=== PATIENT | female | born 1960 | race Caucasian/White ===

== ENCOUNTER 2016-12-05 18:52 | Inpatient (IN) | payer SELFPAY ==
[~2016-12-05] VITALS: Ht 162.6 cm; Wt 93.1 kg
--- NOTE | 2016-12-05 21:19 | DIAGNOSTIC IMAGING REPORT ---
PROCEDURE: CT ABD/PELVIS WITH CONTRAST INDICATION: Abdominal pain. Constipation. Elevated white blood count (18,900). History of diverticulosis. TECHNIQUE: 100 ml of Isovue 300 were injected intravenously and axial images were obtained of the entire abdomen and pelvis with sagittal and coronal reformations. COMPARISON: None. FINDINGS: ABDOMEN: Gallbladder, liver (10 mm left lobe cyst), spleen, pancreas, kidneys, and aorta are normal. Bowel pattern is normal, including appendix. PELVIS: Marked inflammatory changes of the mid sigmoid colon superimposed on moderate diverticulosis. No evidence of fluid collection or abscess. Uterus and adnexal structures are normal. No evidence of free fluid. IMPRESSION: 1. Marked inflammatory changes of the sigmoid colon superimposed on diverticulosis. Findings are compatible with acute diverticulitis. 2. No evidence of fluid collection or abscess. 3. Otherwise negative CT abdomen and pelvis. 4. Findings discussed with Dr. Guzman Cade. All CT scans at this facility use dose modulation, iterative reconstruction, and/or weight-based dosing when appropriate to reduce radiation dose to as low as reasonably achievable.
--- NOTE | 2016-12-05 22:06 | ED CLINICAL REPORT ---
Clinical Report - Physicians/Mid Levels [facility] [address] [place] [address] 12/05/2016 18:54 Patient: ANGELA BROWN Time Seen: 19:42 Dec 05 2016. Historian- patient. HISTORY OF PRESENT ILLNESS Chief Complaint: ABDOMINAL PAIN and fever. At its maximum, severity described as severe. When seen in the E.D., severity described as severe. Modifying factors- worsened by movement. Relieved by rest. It is described as "pain" and it is described as located in the right lower quadrant, in the periumbilical area and in the lower abdomen. This started today This morning and is still present. It was gradual in onset. The patient has had nausea, loss of appetite and vomiting. The vomiting has occurred only once. No diarrhea. No recent travel. Similar symptoms previously: None. Recent medical care: Not recently seen/assessed. REVIEW OF SYSTEMS The patient is post-menopausal. No constipation, black stools or stools or hematemesis. No difficulty with urination or urination, pain with urination or urinary frequency or urinary frequency. No fever, sore throat or throat or chest pain or pain. No difficulty breathing, cough, joint pain or pain or chills. No chills, fever, decreased vision, ear pain or cough. No difficulty breathing, bloody stools or skin rash. Last bowel movement: today. The patient has had abdominal pain. All systems otherwise negative, except as recorded above. PAST HISTORY PCP: None Ops: TA, Csection x 2, Cervical fusion Hosp: Above Illness: Diverticulitis, borderline hypertension. No history of gallstones or bowel obstruction. SOCIAL HISTORY Never smoker. Occasional alcohol use. History of drug use: marijuana. ADDITIONAL NOTES The nursing notes have been reviewed. PHYSICAL EXAM Vital Signs: 12/05/2016 19:24 BP: 156/98. HR: 109. RR: 18. O2 saturation: 98%. Temp: 99.2 F. Pain level now: 10/10. Appearance: Alert. Appears to be in pain. Patient in severe distress. Eyes: Eyes normal inspection. ENT: Pharynx normal. Neck: Normal inspection. CVS: Normal heart rate and rhythm. Heart sounds normal. Pulses normal. Respiratory: No respiratory distress. Breath sounds normal. Chest nontender. Abdomen: Soft. Moderate tenderness in the periumbilical area and right lower quadrant. Abnormal bowel sounds: diminished. No mass. Back: Normal inspection. No CVA tenderness. Skin: Skin warm. Normal skin color. No rash. Extremities: Extremities exhibit normal ROM. Neuro: Oriented X 3. LABS, X-RAYS, AND EKG Abdominal CT: PROCEDURE: CT ABD/PELVIS WITH CONTRAST INDICATION: Abdominal pain. Constipation. Elevated white blood count (18,900). History of diverticulosis. TECHNIQUE: 100 ml of Isovue 300 were injected intravenously and axial images were obtained of the entire abdomen and pelvis with sagittal and coronal reformations. COMPARISON: None. FINDINGS: ABDOMEN: Gallbladder, liver (10 mm left lobe cyst), spleen, pancreas, kidneys, and aorta are normal. Bowel pattern is normal, including appendix. PELVIS: Marked inflammatory changes of the mid sigmoid colon superimposed on moderate diverticulosis. No evidence of fluid collection or abscess. Uterus and adnexal structures are normal. No evidence of free fluid. IMPRESSION: 1. Marked inflammatory changes of the sigmoid colon superimposed on diverticulosis. Findings are compatible with acute diverticulitis. 2. No evidence of fluid collection or abscess. 3. Otherwise negative CT abdomen and pelvis. 4. Findings discussed with Dr. Guzman Cade. All CT scans at this facility use dose modulation, iterative reconstruction, and/or weight-based dosing when appropriate to reduce radiation dose to as low as reasonably achievable. Electronically Final signed by:Manpreet Valdivia MD 12/05/2016 9:17:40 PM. The study was interpreted by the radiologist and contemporaneously by me and discussed with the radiologist. Laboratory Tests: UA-Culture if indicated: (LATISHA: 12/05/2016 22:00) ( MsgRcvd 12/05/2016 22:27) Final results Test Result Flag Units (Reference) URINE COLOR YELLOW URINE APPEARANCE CLEAR URINE GLUCOSE NEGATIVE (NEGATIVE) URINE BILIRUBIN NEGATIVE (NEGATIVE) URINE KETONE TRACE (NEGATIVE) URINE SPECIFIC GRAVITY <= 1.005 L (1.010-1.030) URINE PH 6.0 (5.0-8.0) URINE PROTEIN NEGATIVE (NEGATIVE) URINE UROBILINOGEN 0.2 EU/dL (0.2-1.0) URINE NITRITE NEGATIVE (NEGATIVE) URINE BLOOD TRACE-INTACT (NEGATIVE) URINE LEUK ESTERASE NEGATIVE (NEGATIVE) URINE RBC 3-5 rbc/hpf (0-1) URINE WBC 3-5 wbc/hpf (0-1) URINE EPITHELIAL CELLS 1-3 EPI/hpf (0-5) URINE BACTERIA TRACE (<1+) (NONE SEEN) URINE COMMENT CULT NOT INDICATED MUCUS 2+URINE CULTURES ARE SET-UP BASED ON THE FOLLOWING CRITERIA:POSITIVE NITRITEPOSITIVE LEUKOCYTE ESTERASEGREATER THAN 10 WHITE BLOOD CELLSMODERATE (2+) OR GREATER BACTERIA CBC w Diff: (LATISHA: 12/05/2016 19:30) ( [facility] [place] 21:25) Final results Test Result Flag Units (Reference) WHITE BLOOD COUNT 18.9 H K/uL (4.5-11.5) RED BLOOD COUNT 5.72 H M/uL (4.00-5.20) HEMOGLOBIN 17.9 H gm/dL (12.0-16.0) HEMATOCRIT 53.7 H % (36.0-46.0) MEAN CELL VOLUME 94 fL (80-100) MEAN CORPUSCULAR HGB 31 pg (26-34) MEAN CORPUSCULAR HGB CONC 33 g/dL (31-37) RED CELL DISTRIBUTION WIDTH 13.6 % (11.6-14.8) PLATELET COUNT 322 K/uL (150-400) POLY % 59 % (50-75) BAND % 28 H % (0-8) LYMPH 7 L % (25-40) MONO 6 % (3-14) EOSINOPHIL % 0 % (0-4) BASOPHIL % 0 % (0-2) METAMYELOCYTE % 0 % (0-1) MYELOCYTE 0 % (0-1) OTHER CELL TYPE 0 RBC MORPHOLOGY NORMAL CMP: (LATISHA: 12/05/2016 19:30) ( [facility] [place] 20:33) Final results Test Result Flag Units (Reference) GLUCOSE 145 H mg/dL (70-110) BUN 12 mg/dL (7-18) CREATININE 0.8 mg/dL (0.6-1.3) Estimated GFR >60 mL/min Estimated GFR- >60 mL/min Note: Persistent reduction over 3 months in eGFR<60 mL/min/1.73 m2 defines CKD. Patients with eGFR values>=60 mL/min/1.73 m2 may also have CKD if evidence ofpersistent proteinuria. Additional information may be foundat www.kidney.org. SODIUM 122 L mmol/L (136-145) POTASSIUM 3.6 mmol/L (3.5-5.1) CHLORIDE 96 L mmol/L (98-107) CARBON DIOXIDE 24 mmol/L (21-32) CALCIUM 9.1 mg/dL (8.5-10.1) TOTAL PROTEIN 8.1 g/dL (6.4-8.2) ALBUMIN 4.3 g/dL (3.3-5.0) BILIRUBIN, TOTAL 1.5 H mg/dL (0.0-1.0) ALKALINE PHOSPHATASE 63 U/L (46-116) AST (SGOT) 13 L U/L (15-37) ALT (SGPT) 35 U/L (12-78) LIPASE 86 U/L (73-393) AMYLASE 32 U/L (25-115) . PROGRESS AND PROCEDURES Course of Care: IV NS Dilaudid 0.5 mg IV Zofran 4 mg IV Patient is stable. Symptoms better. 21:48 12/05/16. Assumed care from Dr Escalera. Independent history and and exam. Narayan Cade MD 21:54 12/05/16. Lower and RLQ moderate to severe tenderness with mild to moderate guarding. No tenderness to percussion. We need a UA 22:00 12/05/16. Page to Dr Mccurdy, Discussed. Requests to consult, his preprinted orders and admit to Dr Dubose. Page to Dr Vines 22:09 12/05/16. Dr Dubose is coming Dr Mccurdy requests his preprinted diverticulitis orders. They cannot be found on form central. The RN will call him to clarify the request. 22:46 12/05/16. Dr Dubose has finished his [employer] orders and I have finished mine as well. Disposition: Admitted. CLINICAL IMPRESSION ABDOMINAL PAIN ACUTE DIVERTICULITIS WITHOUT PERFORATION. (Electronically signed by Guzman Cade MD 12/05/2016 23:19)
--- NOTE | 2016-12-05 22:06 | ED ORDER SUMMARY ---
..... Patient: ANGELA BROWN OrderSheet [facility] VisitID: [id number] [place] [address] 56y, F Registration Date/Time: 12/05/2016 ORDER SHEET Weight: 81.6 kg (stated) Allergies: No Known Drug Allergy GENERAL ORDERS: CT Abd/Pel w Cont (No) (pending) Urgent (20:06 12/05/2016 Deven JOE) (Ack 20:08 Stevo) (21:09 [facility]) CBC w Diff Urgent (20:07 12/05/2016 Deven JOE) (Ack 20:08 Stevo) (20:21 Griselda R.N.) CMP Urgent (20:12/05/2016 Deven JOE) (Ack 20:08 Stevo) (20:21 Griselda R.N.) Amylase Urgent (20:07 12/05/2016 Deven JOE) (Ack 20:08 Stevo) (20:21 Griselda R.N.) Lipase Urgent (20:07 12/05/2016 Deven JOE) (Ack 20:08 Stevo) (20:21 Griselda R.N.) UA-Culture if indicated Urgent (21:11 12/05/2016 Deven JOE) (Ack 21:13 [facility] ER [employer] Supervisor) (22:34 Griselda R.N.) MEDICATION ORDERS: IV FLUIDS: IV Saline Lock (19:29 12/05/2016 Griselda R.N. verbal order read back to Deven JOE) (19:30 Griselda R.N.) IV NS : initial bolus 500 mL (1000 mL/hr), then 150 mL/hr for 4h (NOW); Routine (20:05 12/05/2016 Deven JOE) (20:24 Griselda R.N.) Dilaudid IV 0.5 mg (NOW) (Sched q10m for X2); Routine (prn) (Sched q10m for X2) (20:06 12/05/2016 Deven JOE) (20:28 Griselda Busch.N.) Zofran IV 4 mg (NOW) (20:06 12/05/2016 Deven JOE) (20:30 Bhavana R.N.) Dilaudid IV 0.5 mg (NOW) (Sched q10m for X2); Routine (prn) (20:16 12/05/2016 Deven JOE) (20:29 Bhavana R.N.) Levaquin IV 750 mg/150 mL (NOW) (22:21 12/05/2016 Eun JOE) (0:12 Griselda Busch.N.) Flagyl IV 500 mg/100mL (NOW) (22:22 12/05/2016 Eun JOE) (22:33 LAKIAnderbitandres R.N.) ORDER SHEET NOTES: [Electronically signed by Guzman Cade MD (23:19 12/05/2016)] [Electronically signed by Joey Willis R.N. (00:16 12/06/2016)] [Electronically locked/signed by Joey Willis R.N. (00:16 12/06/2016)]
--- NOTE | 2016-12-05 22:06 | ED ORDER SUMMARY ---
..... Patient: ANGELA BROWN OrderSheet [facility] VisitID: [id number] [place] [address] 56y, F Registration Date/Time: 12/05/2016 ORDER SHEET Weight: 81.6 kg (stated) Allergies: No Known Drug Allergy GENERAL ORDERS: CT Abd/Pel w Cont (No) (pending) Urgent (20:06 12/05/2016 Deven JOE) (Ack 20:08 Stevo) (21:09 [facility]) CBC w Diff Urgent (20:07 12/05/2016 Deven JOE) (Ack 20:08 Stevo) (20:21 Griselda R.N.) CMP Urgent (20:12/05/2016 Deven JOE) (Ack 20:08 Stevo) (20:21 Griselda R.N.) Amylase Urgent (20:07 12/05/2016 Deven JOE) (Ack 20:08 Stevo) (20:21 Griselda R.N.) Lipase Urgent (20:07 12/05/2016 Deven JOE) (Ack 20:08 Stevo) (20:21 Griselda R.N.) UA-Culture if indicated Urgent (21:11 12/05/2016 Deven JOE) (Ack 21:13 [facility] ER [facility]) (22:34 Griselda R.N.) MEDICATION ORDERS: IV FLUIDS: IV Saline Lock (19:29 12/05/2016 Griselda R.N. verbal order read back to Deven JOE) (19:30 Griselda R.N.) IV NS : initial bolus 500 mL (1000 mL/hr), then 150 mL/hr for 4h (NOW); Routine (20:05 12/05/2016 Deven JOE) (20:24 Griselda R.N.) Dilaudid IV 0.5 mg (NOW) (Sched q10m for X2); Routine (prn) (Sched q10m for X2) (20:06 12/05/2016 Deven JOE) (20:28 Griselda Busch.N.) Zofran IV 4 mg (NOW) (20:06 12/05/2016 Deven JOE) (20:30 Bhavana R.N.) Dilaudid IV 0.5 mg (NOW) (Sched q10m for X2); Routine (prn) (20:16 12/05/2016 Deven JOE) (20:29 Bhavana R.N.) Levaquin IV 750 mg/150 mL (NOW) (22:21 12/05/2016 Eun JOE) (0:12 Griselda Busch.N.) Flagyl IV 500 mg/100mL (NOW) (22:22 12/05/2016 Eun JOE) (22:33 LAKIAnderbitandres R.N.) ORDER SHEET NOTES: [Electronically signed by Guzman Cade MD (23:19 12/05/2016)] [Electronically signed by Joey Willis R.N. (00:16 12/06/2016)] [Electronically locked/signed by Joey Willis R.N. (00:16 12/06/2016)]
--- NOTE | 2016-12-05 22:06 | ED NURSING NOTES ---
Clinical Report - Nurses [facility] [place] [address] 12/05/2016 18:54 [id number] Triage time 19:22 Dec 05 2016. Acuity: LEVEL 3. Chief Complaint: ABDOMINAL PAIN and NAUSEA. Alert. DANE COMA SCORE: Dane Coma Scale: 15- eyes open spontaneously (4); best verbal response- oriented x 4 (5); best motor response- obeys commands (6). --19:28 Joey Willis R.N. 19:24 12/05/16. BP: 156/98. HR: 109. RR: 18. O2 saturation: 98% on room air. Temp: 99.2 F (oral). Pain level now: 08/06. --19:28 Joey Willis R.N. Weight: 81.6 kg stated. Height/Length: 64 inches Per Patient. BMI: 30.9. --19:23 Joey Willis R.N. Medications None. --19:30 Joey Willis R.N. Allergies No Known Drug Allergy. --19:30 Joey Willis R.N. History Arrived by private vehicle. Historian: patient. Accompanied by son. Primary physician (none). ( Abdominal Pain in RLQ). Onset. (about 11 hours ago). 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 --19:28 Joey Willis R.N. PAST MEDICAL HX: Immunizations: status is unknown and seasonal influenza. The patient is post-menopausal. SOCIAL HX: Smoker- current status unknown (Vape CBD's). Alcohol use; consumes two liquor daily. History of drug use: marijuana. (Vapes). No recent travel. No infectious disease exposure. ABUSE ASSESSMENT: No report of abuse. FALL RISK ASSESSMENT: Fall risk assessment completed. No fall risk identified. NUTRITIONAL RISK ASSESSMENT: The nutritional risk assessment revealed no deficiencies. FUNCTIONAL ASSESSMENT: Functional assessment: no impairments noted. LEARNING NEEDS ASSESSMENT: The learning needs assessment revealed no barriers. SKIN INTEGRITY ASSESSMENT: Skin integrity risk assessment completed. No skin integrity risk identified. --19:33 Joey Willis R.N. PROBLEMS: Diverticulosis. --19:31 Joey Willis R.N. ADDITIONAL SURGERIES: . Neck Surgery. --19:31 Joey Willis R.N. Interventions ID band on patient. To treatment room. --19:28 Joey Willis R.N. PHYSICAL ASSESSMENT To room via wheelchair. GENERAL / NEURO / PSYCH: Alert. Oriented X 4. Appears in pain. HEENT: Mucous membranes are pink. RESPIRATORY: Respirations not labored. CVS: Cardiac rhythm: sinus tachycardia. SKIN: Skin is warm and dry. --19:34 Joey Willis R.N. GI / : Abdominal tenderness in the periumbilical area and right lower quadrant. --19:35 Joey Willis R.N. NURSING PROGRESS NOTES 19:30 12/05/2016 Site #1 started via IV in the right antecubital space with an 20g angiocath, with aseptic technique and good blood return; one attempt. Blood drawn: rainbow set. Saline lock flushed with 10 mL saline (start by MAYITO Steele). --19:30 Joey Willis R.N. Patient gowned. Reassurance given. Patient identifiers checked. Call light placed in reach. Side rails up x 2. Bed placed in lowest position. Brakes of bed on. Patient ready for evaluation- chart flagged and ED physician notified. --19:34 Joey Willis R.N. 20:12/05/2016 Started bag #1 1000 mL IV Fluids IV NS (Saline); bolus of 500 mL over 30 minute(s) then at 150 mL/hr over 3.5 hour(s) via site #1 via IV pump. Allergies verified and confirmed 5 rights. IV patency established. IV site checked: no pain, redness, or swelling. IV flushed thoroughly pre- and post-medication administration. --20:24 Joey Willis R.N. 20:12/05/2016 Dilaudid (HYDROmorphone HCl PF) IVP 0.5 mg given over 1 minute(s) via site #1. IV patency established. IV site checked: no pain, redness, or swelling. IV flushed thoroughly pre- and post-medication administration. IVP given by RN. --20:29 Jennifer Fleming R.N. 20:10 12/05/2016 Zofran (Ondansetron HCl) IVP 4 mg given over 1 minute(s) via site #1. IV patency established. IV site checked: no pain, redness, or swelling. IV flushed thoroughly pre- and post-medication administration. IVP given by RN. --20:30 Jennifer Fleming R.N. 20:18 12/05/2016 Dilaudid (HYDROmorphone HCl PF) IVP 0.5 mg given over 2 minute(s) via site #1. Allergies verified, confirmed 5 rights and sedative warning given to the patient and patient's family. IV patency established. IV site checked: no pain, redness, or swelling. IV flushed thoroughly pre- and post-medication administration. IVP given by RN. --20:28 Joey Willis R.N. 21:00. Patient transported to CT by Greenhouse Strategieser with tech. --21:20 Joey Willis R.N. 21:15. Patient returned from radiology by [employer] Strategieser with tech. --21:21 Joey Willis R.N. 21:41 12/05/2016 Started IV Fluids IV NS (Saline); at 150 mL/hr over 4 hour(s) via site #1 --21:41 Cedric Alcaraz R.N. 22:23 12/05/2016 Site #2 started via IV in the left hand with an 22g angiocath, with aseptic technique and good blood return; one attempt. Saline lock flushed with saline. --22:23 Cedric Alcaraz R.N. 22:33 12/05/2016 Started 500 mg of Flagyl (MetroNIDAZOLE in NaCl) IVPB in bag #1 100 mL; at 100 mL/hr over 1 hour(s) via site #2 via IV pump. Allergies verified and confirmed 5 rights. IV patency established. IV site checked: no pain, redness, or swelling. IV flushed thoroughly pre- and post-medication administration. --22:33 Magui Serrato R.N. 22:45 12/05/2016 Dilaudid (HYDROmorphone HCl PF) IVP 0.5 mg given over 2 minute(s) via site #2. Allergies verified, confirmed 5 rights and sedative warning given. IV patency established. IV site checked: no pain, redness, or swelling. IV flushed thoroughly pre- and post-medication administration. IVP given by RN. --22:50 Joey Willis R.N. 23:16 12/05/2016 Dilaudid (HYDROmorphone HCl PF) IVP 0.5 mg given over 2 minute(s) via site #2. Allergies verified, confirmed 5 rights and sedative warning given to the patient. IV patency established. IV site checked: no pain, redness, or swelling. IV flushed thoroughly pre- and post-medication administration. IVP given by RN. --23:16 Joey Willis R.N. 22:15 12/05/16. BP: 160/99. HR: 94. RR: 16. O2 saturation: 96% on room air. Pain level now: 04/06. --23:24 Joey Willis R.N. <<STRICKEN ENTRY-- 23:25 12/05/16. BP: 154/97. HR: 102. RR: 16. O2 saturation: 97% on room air. Pain level now: 5/10. --23:25 Joey Willis R.N. --END STRIKE>> Correction. --00:02 Joey Willis R.N. 23:00 12/05/16. BP: 154/97. HR: 102. RR: 16. O2 saturation: 97% on room air. Pain level now: 5/10. Additional comments: Abdominal Pain. --00:04 Joey Willis R.N. <<STRICKEN ENTRY-- 22:20 12/05/2016 Site #1 removed. Catheter intact. Pressure dressing and bandaid applied. --00:08 Joey Willis R.N. --END STRIKE>> Change to Details. --00:09 Joey Willis R.N. 22:20 12/05/2016 Site #1 removed. Catheter intact. Pressure dressing and bandaid applied (pt states that site is painful). --00:09 Joey Willis R.N. 23:00 12/05/2016 Started 750 mg of Levaquin (Levofloxacin) IVPB in bag #1 150 mL; at 100 mL/hr over 90 minute(s) via site #2; Allergies verified. (IVPB sent with pt to be infused upon admit.). --00:12 Joey Willis R.N. 23:30 12/05/2016 Site #[address] upon admission; patent. Good blood return present; flushes easily (IV infusing in site). --00:07 Joey Willis R.N. 23:30 12/05/2016 Flagyl IVPB Discontinued: bag #1 infused upon admission. Total amount infused: 100 mL. IV patency established. IV site checked: no pain, redness, or swelling. IV flushed thoroughly. --00:06 Joey Willis R.N. 23:30 12/05/2016 IV Fluids IV NS Continued: upon admission at the rate of 150 mL/hr. 200 mL remaining bag #1. IV patency established. IV site checked: no pain, redness, or swelling. IV flushed thoroughly. --00:16 Joey Willis R.N. DISPOSITION / DISCHARGE 23:10 12/05/16. BP: 143/75. HR: 98. RR: 16. O2 saturation: 97% at 2 liters/minute. Temp: 99 F (oral). Pain level now: 11/06. --23:59 Joey Willis R.N. Departure time: 2330. --23:59 Joey Willis R.N. 23:30. Admitted to Acute Care. Transported via stretcher by nurse with IV. Report was given to a nurse via a phone call. Report included patient's care, treatment, medications, reviewed medication reconcilliation, and condition (including any recent changes or anticipated changes). All questions were answered. Report was acknowledged and care was transferred. Patient's personal items; items were placed in belongings bag and transported with the patient. --00:01 Joey Willis R.N. Locked/Released at 12/06/2016 0:16 by Joey Willis R.N.
[2016-12-05] MEDS ORDERED: FLONASE AL50 MCG/ACT IN (23:04)
--- NOTE | 2016-12-05 23:08 | HISTORY AND PHYSICAL ---
ADMITTED: 12/05/2016 HISTORY OF PRESENT ILLNESS: The patient is a 56-year-old female with chief complaint of fever and abdominal pain. She has a history of diverticulitis and that was diagnosed at age 36. She has attacks maybe once every 5 years. She has been under a lot of stress this past week as her mother . She has also been stressed out at work and has changed her diet and has had decreased p.o. intake of fluid. This morning she started to have pain in the lower abdomen, symptoms gradually worsened, associated with nausea and vomiting. There is no diarrhea. Her last bowel movement was this afternoon. The patient was seen in the emergency department where a CT showed evidence of sigmoid diverticulitis. MEDICAL/SURGICAL HISTORY: Past medical history: As mentioned, is pertinent for diverticulitis, borderline hypertension. Prior surgeries: Include a x2 , cervical fusion, tonsillectomy and adenoidectomy. MEDICATIONS: 1. None. ALLERGIES: 1. NONE. PRIMARY CARE PHYSICIAN: She has no PCP. SOCIAL HISTORY: Never smoked, very rare occasional alcohol use and she uses marijuana. She lives with her . FAMILY HISTORY: Noncontributory to the patient's illness. REVIEW OF SYSTEMS: The rest of the review of systems otherwise unremarkable. No chest pain or palpitations. No cough, hemoptysis or shortness of breath. No urinary symptoms. No rash. PHYSICAL EXAMINATION: GENERAL: Shows a well-developed, well-nourished female. She is alert, awake, oriented x3. VITAL SIGNS: Blood pressure 156/98, heart rate 109, respirations 18, O2 saturations 98%, temperature 99.2. HEENT: She has dry oral mucosa. NECK: No JVD. No bruits. LUNGS: Clear. No rales, no wheezes, no rhonchi. CARDIOVASCULAR: Regular rate and rhythm. S1, S2 normal. No gallops, murmurs or rubs. ABDOMEN: Soft. Tenderness in lower abdomen with normoactive bowel sounds. No guarding, no bruits. BACK: No CVA tenderness. EXTREMITIES: No edema or cyanosis. Peripheral pulses are palpable. NEUROLOGIC: She is alert, oriented x3, no cardiopulmonary distress. LAB/IMAGING: Her laboratories include a hemoglobin of 17.9, hematocrit 53.7, WBC of 8.9, platelet count of 122,000, polys of 59, bands of 28. Sodium is 122, potassium 3.6, chloride 96, CO2 24, BUN of 12, creatinine 0.8. Total bilirubin is 1.5, alk phos is 63, AST 13, ALT 35, lipase 86, amylase 32. IMPRESSION: 1. Acute diverticulitis. 2. Dehydration with hyponatremia and hypochloremia. 3. Hypertension, probably stress-induced. PLAN: We will admit to inpatient, empirically place on Levaquin and Flagyl. We will hydrate with normal saline. Repeat Chem-7 in a.m., repeat CBC in a.m. We will place on p.r.n. medications for analgesia and antiemetics. We will consult Dr. Mccurdy for surgical evaluation. We will place patient on Protonix for stress gastritis prophylaxis and subcutaneous Lovenox for deep venous thrombosis prophylaxis. Plan of care discussed with the patient, she agreed and verbalized understanding.
[2016-12-05 23:53] VITALS: BP 139/77
--- NOTE | 2016-12-06 00:18 | ED MED RECONCILIATION SUMMARY ---
Patient: ANGELA BROWN Medication Reconciliation Report [facility] VisitID: [id number] [address] [place] [address] 56y, F Registration Date/Time: 12/05/2016 Weight: 81.6 kg Height/Length: 64 in. BMI: 30.9 ALLERGIES: No Known Drug Allergy The patient's Home Medications are listed below: NONE. The source(s) of the original Home Medication information: Not obtained. The following Medications were given to the patient in the Emergency Department: IV NS IV Fluids bolus 500 mL over 30 minute(s), then 150 mL/hr, administered: 12/05/2016 8:09:00 PM Dilaudid [IVP] IVP 0.5 mg, administered: 12/05/2016 8:18:00 PM Dilaudid [IVP] IVP 0.5 mg, administered: 12/05/2016 8:09:00 PM Zofran [IVP] IVP 4 mg, administered: 12/05/2016 8:10:00 PM IV NS IV Fluids bolus 0, then 150 mL/hr, administered: 12/05/2016 9:41:00 PM Flagyl [IVPB] IVPB bolus 0, then 500 mg 100 mL/hr, administered: 12/05/2016 10:33:00 PM Dilaudid [IVP] IVP 0.5 mg, administered: 12/05/2016 10:45:00 PM Dilaudid [IVP] IVP 0.5 mg, administered: 12/05/2016 11:16:00 PM Levaquin [IVPB] IVPB bolus 0, then 750 mg 100 mL/hr, administered: 12/05/2016 11:00:00 PM The following Medications were prescribed to the patient: None.
--- NOTE | 2016-12-06 00:18 | ED MAR SUMMARY ---
..... Medication Administration Record [facility] [address] [place] [address] Patient: ANGELA BROWN Visit ID: [id number] 56y, F Weight: 81.6 kg Height/Length: 64 in BMI: 30.9 ALLERGIES: No Known Drug Allergy Start 20:09 12/05/2016 Joey Willis R.N. Medication Administered: IV NS (SALINE), Dose: IV Fluids over 3.5 hour(s), Rate: 150 mL/hr, Bolus: 500 mL over 30 minute(s), Dispensed: 1000 mL bag, Site: #1 right AC. Medication Ordered: IV NS : initial bolus 500 mL (1000 mL/hr), then 150 mL/hr for 4h (NOW); Routine. Given 20:09 12/05/2016 Jennifer Fleming R.N. Medication Administered: DILAUDID [IVP] (HYDROMORPHONE HCL PF), Dose: 0.5 mg IVP over 1 minute(s), Site: #1 right AC. Medication Ordered: Dilaudid IV 0.5 mg (NOW) (Sched q10m for X2); Routine (prn) 2 of 2. Given 20:10 12/05/2016 Jennifer Fleming R.N. Medication Administered: ZOFRAN [IVP] (ONDANSETRON HCL), Dose: 4 mg IVP over 1 minute(s), Site: #1 right AC. Medication Ordered: Zofran IV 4 mg (NOW). Given 20:18 12/05/2016 Joey Willis RTylerNTyler Medication Administered: DILAUDID [IVP] (HYDROMORPHONE HCL PF), Dose: 0.5 mg IVP over 2 minute(s), Site: #1 right AC. Medication Ordered: Dilaudid IV 0.5 mg (NOW) (Sched q10m for X2); Routine (prn) 1 of 2. Start 21:41 12/05/2016 Cedric Alcaraz RAkshat, Continued Upon Admission 23:30 12/05/2016 Joey Willis R.N. Medication Administered: IV NS (SALINE), Dose: IV Fluids over 4 hour(s), Rate: 150 mL/hr, Site: #1 right AC. Medication Ordered: IV NS : initial bolus 500 mL (1000 mL/hr), then 150 mL/hr for 4h (NOW); Routine. Start 22:33 12/05/2016 Magui Serrato R.N., Stop 23:30 12/05/2016 Joey Willis R.N. Medication Administered: FLAGYL [IVPB] (METRONIDAZOLE IN NACL), Dose: 500 mg IVPB over 1 hour(s), Rate: 100 mL/hr, Dispensed: 100 mL bag, Site: #2 left hand. Medication Ordered: Flagyl IV 500 mg/100mL (NOW). Given 22:45 12/05/2016 Joey Willis R.N. Medication Administered: DILAUDID [IVP] (HYDROMORPHONE HCL PF), Dose: 0.5 mg IVP over 2 minute(s), Site: #2 left hand. Medication Ordered: Dilaudid IV 0.5 mg (NOW) (Sched q10m for X2); Routine (prn) 2 of 2. Start 23:00 12/05/2016 Joey Willis R.NTyler Medication Administered: LEVAQUIN [IVPB] (LEVOFLOXACIN), Dose: 750 mg IVPB over 90 minute(s), Rate: 100 mL/hr, Dispensed: 150 mL bag, Site: #2 left hand. Medication Ordered: Levaquin IV 750 mg/150 mL (NOW). Given 23:16 12/05/2016 Joey Willis R.N. Medication Administered: DILAUDID [IVP] (HYDROMORPHONE HCL PF), Dose: 0.5 mg IVP over 2 minute(s), Site: #2 left hand. Medication Ordered: Dilaudid IV 0.5 mg (NOW) (Sched q10m for X2); Routine (prn) 2 of 2.
--- NOTE | 2016-12-06 00:18 | ED DISCHARGE INSTRUCTIONS ---
Patient: ANGELA BROWN General Instructions [facility] VisitID: [id number] [address] [place] [address] 56y, F Registration Date/Time: 12/05/2016 ABDOMINAL PAIN ACUTE DIVERTICULITIS WITHOUT PERFORATION. (Electronically signed by Guzman Cade MD 12/05/2016 23:19)
--- NOTE | 2016-12-06 00:18 | ED MAR SUMMARY ---
..... Medication Administration Record [facility] [address] [place] [address] Patient: ANGELA BROWN Visit ID: [id number] 56y, F Weight: 81.6 kg Height/Length: 64 in BMI: 30.9 ALLERGIES: No Known Drug Allergy Start 20:09 12/05/2016 Joey Willis R.N. Medication Administered: IV NS (SALINE), Dose: IV Fluids over 3.5 hour(s), Rate: 150 mL/hr, Bolus: 500 mL over 30 minute(s), Dispensed: 1000 mL bag, Site: #1 right AC. Medication Ordered: IV NS : initial bolus 500 mL (1000 mL/hr), then 150 mL/hr for 4h (NOW); Routine. Given 20:09 12/05/2016 Jennifer Fleming R.N. Medication Administered: DILAUDID [IVP] (HYDROMORPHONE HCL PF), Dose: 0.5 mg IVP over 1 minute(s), Site: #1 right AC. Medication Ordered: Dilaudid IV 0.5 mg (NOW) (Sched q10m for X2); Routine (prn) 2 of 2. Given 20:10 12/05/2016 Jennifer Fleming R.N. Medication Administered: ZOFRAN [IVP] (ONDANSETRON HCL), Dose: 4 mg IVP over 1 minute(s), Site: #1 right AC. Medication Ordered: Zofran IV 4 mg (NOW). Given 20:18 12/05/2016 Joey Willis RTylerNTyler Medication Administered: DILAUDID [IVP] (HYDROMORPHONE HCL PF), Dose: 0.5 mg IVP over 2 minute(s), Site: #1 right AC. Medication Ordered: Dilaudid IV 0.5 mg (NOW) (Sched q10m for X2); Routine (prn) 1 of 2. Start 21:41 12/05/2016 Cedric Alcaraz RAkshat, Continued Upon Admission 23:30 12/05/2016 Joey Wilils R.N. Medication Administered: IV NS (SALINE), Dose: IV Fluids over 4 hour(s), Rate: 150 mL/hr, Site: #1 right AC. Medication Ordered: IV NS : initial bolus 500 mL (1000 mL/hr), then 150 mL/hr for 4h (NOW); Routine. Start 22:33 12/05/2016 Magui Serrtao R.N., Stop 23:30 12/05/2016 Joey Willis R.N. Medication Administered: FLAGYL [IVPB] (METRONIDAZOLE IN NACL), Dose: 500 mg IVPB over 1 hour(s), Rate: 100 mL/hr, Dispensed: 100 mL bag, Site: #2 left hand. Medication Ordered: Flagyl IV 500 mg/100mL (NOW). Given 22:45 12/05/2016 Joey Willis R.N. Medication Administered: DILAUDID [IVP] (HYDROMORPHONE HCL PF), Dose: 0.5 mg IVP over 2 minute(s), Site: #2 left hand. Medication Ordered: Dilaudid IV 0.5 mg (NOW) (Sched q10m for X2); Routine (prn) 2 of 2. Start 23:00 12/05/2016 Joey Willis R.NTyler Medication Administered: LEVAQUIN [IVPB] (LEVOFLOXACIN), Dose: 750 mg IVPB over 90 minute(s), Rate: 100 mL/hr, Dispensed: 150 mL bag, Site: #2 left hand. Medication Ordered: Levaquin IV 750 mg/150 mL (NOW). Given 23:16 12/05/2016 Joey Willis R.N. Medication Administered: DILAUDID [IVP] (HYDROMORPHONE HCL PF), Dose: 0.5 mg IVP over 2 minute(s), Site: #2 left hand. Medication Ordered: Dilaudid IV 0.5 mg (NOW) (Sched q10m for X2); Routine (prn) 2 of 2.
--- NOTE | 2016-12-06 00:18 | ED MED RECONCILIATION SUMMARY ---
Patient: ANGELA BROWN Medication Reconciliation Report [facility] VisitID: [id number] [address] [place] [address] 56y, F Registration Date/Time: 12/05/2016 Weight: 81.6 kg Height/Length: 64 in. BMI: 30.9 ALLERGIES: No Known Drug Allergy The patient's Home Medications are listed below: NONE. The source(s) of the original Home Medication information: Not obtained. The following Medications were given to the patient in the Emergency Department: IV NS IV Fluids bolus 500 mL over 30 minute(s), then 150 mL/hr, administered: 12/05/2016 8:09:00 PM Dilaudid [IVP] IVP 0.5 mg, administered: 12/05/2016 8:18:00 PM Dilaudid [IVP] IVP 0.5 mg, administered: 12/05/2016 8:09:00 PM Zofran [IVP] IVP 4 mg, administered: 12/05/2016 8:10:00 PM IV NS IV Fluids bolus 0, then 150 mL/hr, administered: 12/05/2016 9:41:00 PM Flagyl [IVPB] IVPB bolus 0, then 500 mg 100 mL/hr, administered: 12/05/2016 10:33:00 PM Dilaudid [IVP] IVP 0.5 mg, administered: 12/05/2016 10:45:00 PM Dilaudid [IVP] IVP 0.5 mg, administered: 12/05/2016 11:16:00 PM Levaquin [IVPB] IVPB bolus 0, then 750 mg 100 mL/hr, administered: 12/05/2016 11:00:00 PM The following Medications were prescribed to the patient: None.
--- NOTE | 2016-12-06 00:18 | ED DISCHARGE INSTRUCTIONS ---
Patient: ANGELA BROWN General Instructions [facility] VisitID: [id number] [address] [place] [address] 56y, F Registration Date/Time: 12/05/2016 ABDOMINAL PAIN ACUTE DIVERTICULITIS WITHOUT PERFORATION. (Electronically signed by Guzman Cade MD 12/05/2016 23:19)
[2016-12-06 02:37] VITALS: BP 111/67
[2016-12-06 06:44] VITALS: BP 140/77
--- NOTE | 2016-12-06 07:30 | HISTORY AND PHYSICAL ---
ADMITTED: 12/05/2016 CHIEF COMPLAINT: 1. Suprapubic left lower quadrant abdominal pain HISTORY OF PRESENT ILLNESS: A 56-year-old female admitted to [facility] by Dr. Dubose. She presented to the emergency department with less than 12-hour history of severe suprapubic left lower quadrant abdominal pain. The patient underwent a CT of her abdomen which shows inflammatory changes and diverticulosis of the sigmoid colon consistent with acute diverticulitis. The patient states that she was first diagnosed at age 36 with diverticulitis and over the last several years she has had at least 3 attacks, usually every 3 years, usually treated without hospitalization, treated with oral antibiotics. The patient denies any recent history of diarrhea, but does admit to some recent constipation; however, last bowel movement was last evening. She denies any bright red blood per rectum or melenic stools. Denies any fever or chills, and denies any nausea or vomiting. According to the patient, the pain is localized, nonradiating, comes in waves. MEDICAL/SURGICAL HISTORY: History of diverticulitis, hypertension, x2, cervical fusion, tonsillectomy, adenoidectomy. MEDICATIONS: None. ALLERGIES: 1. NONE. SOCIAL HISTORY: She is . She has 2 sons who are alive and well. The patient does not smoke. Drinks a couple of drinks of alcohol after work each evening. Does not drink coffee and smokes marijuana with her . 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 FAMILY HISTORY: Mother recently at age 83 from complications of dementia and gastrointestinal bleed, refused transfusions. Father at age 54 from alcoholism. One brother and one sister, alive and well. REVIEW OF SYSTEMS: She is G2, P0, AB. Menarche at age 12 or 13. There were very, very spotty until just before her at age 38. Her last menstrual period was approximately 5 years ago. Last Pap smear 2 years ago. Last mammogram 2 years ago. The patient has never had a colonoscopy. The patient denies any history of hepatitis , jaundice, rheumatic fever, blood transfusion, heart murmurs requiring antibiotics or bleeding tendencies. Remaining 12-point review of systems is negative. PHYSICAL EXAMINATION: GENERAL: The patient is awake, alert, conversant, appears to be in mild to moderate discomfort. VITAL SIGNS: Blood pressure is 156/98, pulse 109, temperature is 99, respirations 18. HEENT: The patient normocephalic, atraumatic. Pupils equal and reactive. No scleral icterus. External auditory canals clear. No nasal septal defect or discharge. The patient is missing a tooth in the front. She has got good oral hygiene otherwise and moist mucous membranes. NECK: Supple. No JVD, carotid bruit or adenopathy. LUNGS: Clear. No rales or wheezing. O2 saturations is 98% in room air. HEART: Regular rhythm, no murmurs. ABDOMEN: Nondistended. Hypoactive bowel sounds. She has a hanging pannus. No discoloration. She is tender to palpation in the suprapubic and left lower quadrant region. No masses appreciable. EXTREMITIES: Full range of motion, active and passively and no evidence of pretibial or ankle edema. SKIN: Warm and dry, with no peripheral cyanosis. LYMPHATICS: No cervical, supraclavicular, axillary, or groin adenopathy. NEUROLOGIC: The patient is grossly intact with no focal motor neurologic deficits. LAB/IMAGING: On admission, her white count was 18.9, hemoglobin and hematocrit 17.9 and 53.7 respectively. This morning, white count was 8.8, hemoglobin and hematocrit 15.5 and 46.2 respectively. On admission, her sodium was 122, chloride 96, potassium 3.6, bicarbonate 24, glucose 145, BUN 12, creatinine 0.8. Liver functions normal. Total bilirubin 1.5. Lipase 86. This morning, her sodium is 141, chloride 103, potassium 4.0, bicarbonate 24, glucose 120, BUN 10, creatinine 0.6. IMPRESSION: Acute diverticulitis. PLAN: As per protocol. N.p.o., IV hydration and IV antibiotics. Once she is passing flatus, we can start her on some clear liquids and start her on oral antibiotics. We will monitor her white count very closely, her pain status as well. Explained to the patient, should she not improve, white count get worse, temperature spike, or she becomes septic, she may require emergent surgery, which would lead us to a diverting colostomy Purnima procedure. Otherwise, would recommend treating conservatively and eventually performing a colonoscopy on the patient with tattooing of the involved segment of the sigmoid and eventual laparoscopic-assisted sigmoid resection. At this point, all questions have been answered to her satisfaction.
[2016-12-06 11:15] VITALS: BP 133/89
[2016-12-06 15:04] VITALS: BP 140/92
--- NOTE | 2016-12-06 18:01 | Progress Note ---
Subjective General PT seen and examined, pt has mild nausea and pain from being npo. Patient is otherwise doing well without any complaints. Patient will c/w npo status and antibiotics Constitutional Denies: Fever, Chills, Sweats, Weakness, Malaise, Other. Eyes Denies: Pain, Vision Change, Conjunctival Inflammation, Eyelid Inflammation, Redness, Other. Respiratory Denies: Cough, Dry, SOB w/exertion, Wheezing, Hemoptysis, Pleuritic Pain, Sputum , Other. Cardiovascular Denies: Chest Pain, Palpitations, Orthopnea, PND, Edema, Light-headedness, Other. Gastrointestinal Nausea, Vomiting, Abdominal Pain. Denies: Diarrhea, Constipation, Melena, Hematochezia, Other. Genitourinary Denies: Dysuria, Frequency, Incontinence, Hematuria, Retention, Other. Musculoskeletal Denies: Neck Pain, Shoulder Pain, Arm Pain, Back Pain, Hand Pain, Leg Pain, Foot Pain, Other. Neurological Denies: Weakness, Numbness, Incoordination, Change in speech, Confusion, Seizures, Other. Physical Exam Vital Signs / I&Os Vital Signs Date Time Temp Pulse Resp B/P Pulse O2 O2 Flow FiO2 Ox Delivery Rate 12/06 1504 99.0 96 16 140/92 91 Room Air 0.0 12/06 1115 99.1 93 16 133/89 94 Room Air 12/06 0900 Room Air 0.0 12/06 0644 98.8 106 20 140/77 95 Nasal 2.0 Cannula 12/06 0237 98.4 102 15 111/67 90 Nasal 1.0 Cannula 12/05 2353 99.1 99 16 139/77 96 Room Air 12/05 2350 Nasal 1.0 Cannula I&O 12/05 0800 12/05 1600 12/06 0000 Intake Total Output Total Balance General Appearance Alert, Oriented X3, No acute distress HEENT Atraumatic, PERRLA, Moist mucous membranes Lungs Normal exam Neck No JVD, No masses Cardiovascular Regular rate and rhythm, Normal S1 and S2 Abdomen Soft, No tenderness Extremities No clubbing, No edema Neurological Normal gait, Normal speech, Sensation intact LAB Results Laboratory Tests 12/05 12/05 12/06 1930 2200 0515 Chemistry Plasma Sodium (136 - 145 mmol/L) 122 141 Plasma Potassium (3.5 - 5.1 mmol/L) 3.6 4.0 Plasma Chloride (98 - 107 mmol/L) 96 103 CO2 (Enzymatic) (21 - 32 mmol/L) 24 24 BUN (7 - 18 mg/dL) 12 10 Creatinine (0.6 - 1.3 mg/dL) 0.8 0.6 Est GFR ( Amer) (mL/min) >60 >60 Est GFR (Non-Af Amer) (mL/min) >60 >60 Glucose (70 - 110 mg/dL) 145 120 Plasma Calcium (8.5 - 10.1 mg/dL) 9.1 8.2 Plasma Magnesium (1.8 - 2.4 mg/dL) 1.4 Total Bilirubin (0.0 - 1.0 mg/dL) 1.5 AST (15 - 37 U/L) 13 ALT (12 - 78 U/L) 35 Alkaline Phosphatase (46 - 116 U/L) 63 Total Protein (6.4 - 8.2 g/dL) 8.1 Albumin (3.3 - 5.0 g/dL) 4.3 Amylase (25 - 115 U/L) 32 Lipase (73 - 393 U/L) 86 Hematology WBC (4.5 - 11.5 K/uL) 18.9 18.8 RBC (4.00 - 5.20 M/uL) 5.72 4.93 Hgb (12.0 - 16.0 gm/dL) 17.9 15.5 Hct (36.0 - 46.0 %) 53.7 46.2 MCV (80 - 100 fL) 94 94 MCH (26 - 34 pg) 31 31 RDW (11.6 - 14.8 %) 13.6 13.6 Neut % (Auto) (50 - 75 %) 59 87.4 Lymph % (Auto) (25 - 40 %) 7 7.6 [place] % (Auto) (3 - 14 %) 6 4.7 Eos % (Auto) (0 - 4 %) 0 0 Baso % (Auto) (0 - 2 %) 0 0.3 Band Neutrophils % (0 - 8 %) 28 Metamyelocytes % (0 - 1 %) 0 Myelocytes (0 - 1 %) 0 Other Cell Type 0 Plt Count, EDTA (150 - 400 K/uL) 322 261 RBC Morphology NORMAL PUBS MCHC (31 - 37 g/dL) 33 34 Urines Urine Color YELLOW Urine Appearance CLEAR Urine pH (5.0 - 8.0) 6.0 Ur Specific [place] (1.010 - 1.030) <= 1.005 Urine Protein (NEGATIVE) NEGATIVE Urine Ketones (NEGATIVE) TRACE Urine Blood (NEGATIVE) TRACE-INTACT Urine Nitrite (NEGATIVE) NEGATIVE Urine Bilirubin (NEGATIVE) NEGATIVE Urine Urobilinogen (0.2 - 1.0 EU/dL) 0.2 Ur Leukocyte Esterase (NEGATIVE) NEGATIVE Urine RBC (0 - 1 rbc/hpf) 3-5 Urine WBC (0 - 1 wbc/hpf) 3-5 Ur Epithelial Cells (0 - 5 EPI/hpf) 1-3 Urine Bacteria (NONE SEEN) TRACE (<1+) Urine Glucose (NEGATIVE) NEGATIVE Urine Comment CULT NOT INDICATED Assessment and Plan Problem List 1. Acute diverticulitis Plan - will continue with npo status - will continue with levaquin and flagyl - IV fluids while npo - will continue to trend cbc
[2016-12-06 18:23] VITALS: BP 140/94
[2016-12-07] VITALS (7 sets, daily range): BP systolic 132–154; BP diastolic 88–111
--- NOTE | 2016-12-07 17:26 | Progress Note ---
Subjective General Pt seen and examined, patient is much more improved than compared to yesterday. Patient is able to walk without pain in her abdomen. Patient is additionally beginning to have return of appeite. Physical Exam Vital Signs / I&Os Vital Signs Date Time Temp Pulse Resp B/P Pulse O2 O2 Flow FiO2 Ox Delivery Rate 12/07 1456 98.6 91 16 147/96 97 Room Air 12/07 1055 98.4 102 16 153/108 90 Room Air 12/07 0850 Room Air 0.0 12/07 0803 2.0 12/07 0654 98.8 103 17 138/107 95 Room Air 12/07 0248 98.1 96 18 132/88 94 Nasal 2.0 Cannula 12/07 0130 98.6 102 20 146/94 93 Room Air 12/06 1823 98.8 96 16 140/94 95 Room Air 0.0 I&O 12/06 0800 12/06 1600 12/07 0000 Intake Total 819 1235 1045 Output Total 275 1100 250 Balance 544 135 795 General Appearance Alert, Oriented X3, No acute distress HEENT Atraumatic, EOMI, Moist mucous membranes Lungs Clear to auscultation, Normal air movement Neck No JVD, No masses Cardiovascular Regular rate and rhythm, Normal S1 and S2, No murmurs, gallops, rubs Abdomen Soft, No guarding, -slight tenderness Extremities No clubbing, No edema LAB Results Laboratory Tests 12/07 0553 Chemistry Plasma Sodium (136 - 145 mmol/L) 138 Plasma Potassium (3.5 - 5.1 mmol/L) 3.7 Plasma Chloride (98 - 107 mmol/L) 103 CO2 (Enzymatic) (21 - 32 mmol/L) 24 BUN (7 - 18 mg/dL) 8 Creatinine (0.6 - 1.3 mg/dL) 0.7 Est GFR ( Amer) (mL/min) >60 Est GFR (Non-Af Amer) (mL/min) >60 Glucose (70 - 110 mg/dL) 113 Plasma Calcium (8.5 - 10.1 mg/dL) 8.4 Total Bilirubin (0.0 - 1.0 mg/dL) 1.8 AST (15 - 37 U/L) 12 ALT (12 - 78 U/L) 18 Alkaline Phosphatase (46 - 116 U/L) 58 Total Protein (6.4 - 8.2 g/dL) 7.1 Albumin (3.3 - 5.0 g/dL) 3.0 Hematology WBC (4.5 - 11.5 K/uL) 17.0 RBC (4.00 - 5.20 M/uL) 4.68 Hgb (12.0 - 16.0 gm/dL) 14.8 Hct (36.0 - 46.0 %) 44.4 MCV (80 - 100 fL) 95 MCH (26 - 34 pg) 32 RDW (11.6 - 14.8 %) 14.1 Neut % (Auto) (50 - 75 %) 70 Lymph % (Auto) (25 - 40 %) 20 [place] % (Auto) (3 - 14 %) 0 Eos % (Auto) (0 - 4 %) 0 Baso % (Auto) (0 - 2 %) 0 Band Neutrophils % (0 - 8 %) 10 Metamyelocytes % (0 - 1 %) 0 Myelocytes (0 - 1 %) 0 Other Cell Type 0 Plt Count, EDTA (150 - 400 K/uL) 235 RBC Morphology (54876 A) NORMOCHROMIC PUBS MCHC (31 - 37 g/dL) 33 Assessment and Plan Problem List 1. Acute diverticulitis Plan - c/w antibiotics and npo status - if patient continues on her current trajectory will resume feeding tomorrow - ivf while npo 2. Hypertension Plan - Pt had a hypertensive episode this afternoon - resolved spontaneously - will continue to monitor
[2016-12-08 02:17] VITALS: BP 157/107
[2016-12-08 06:50] VITALS: BP 162/113
[2016-12-08 10:48] VITALS: BP 150/103
[2016-12-08 14:39] VITALS: BP 143/112
--- NOTE | 2016-12-08 17:27 | Progress Note ---
Subjective General Patient doing well today. Patient has significantly decreased pain today, and she is able to tolerate clear liquids. Will continue to monitor. If patient continues to do well, will advance diet. Constitutional Denies: Fever, Chills, Sweats, Weakness, Malaise, Other. Eyes Denies: Pain, Vision Change, Conjunctival Inflammation, Eyelid Inflammation, Redness, Other. ENT Denies: Ear Pain, Ear Discharge, Nose Pain, Nasal Discharge, Nasal Congestion, Mouth Pain, Mouth Swelling, Throat Pain, Throat Swelling, Other. Respiratory Denies: Cough, Dry, SOB w/exertion, Wheezing, Hemoptysis, Pleuritic Pain, Sputum , Other. Cardiovascular Denies: Chest Pain, Palpitations, Orthopnea, PND, Edema, Light-headedness, Other. Gastrointestinal Nausea, Abdominal Pain. Denies: Vomiting, Diarrhea, Constipation, Melena, Hematochezia, Other. Genitourinary Denies: Dysuria, Frequency, Incontinence, Hematuria, Retention, Other. Musculoskeletal Denies: Neck Pain, Shoulder Pain, Arm Pain, Back Pain, Hand Pain, Leg Pain, Foot Pain, Other. Skin Denies: Rash, Lesions, Jaundice, Bruising, Other. Physical Exam Vital Signs / I&Os Vital Signs Date Time Temp Pulse Resp B/P Pulse O2 O2 Flow FiO2 Ox Delivery Rate 12/08 1439 98.4 85 20 143/112 93 Room Air 12/08 1048 98.8 94 20 150/103 95 Room Air 0.0 12/08 0650 98.8 79 20 162/113 93 Room Air 0.0 12/08 0217 98.2 90 16 157/107 96 Room Air 12/08 0020 Room Air 12/07 2227 98.2 83 16 136/91 96 Room Air 12/07 1824 98.4 96 16 154/111 96 Room Air I&O 12/07 0800 12/07 1600 12/08 0000 Intake Total 896 715 914 Output Total 550 450 100 Balance 346 265 814 General Appearance Alert, Oriented X3, No acute distress HEENT Atraumatic, PERRLA, Moist mucous membranes Lungs Clear to auscultation, Normal air movement Cardiovascular Regular rate and rhythm, Normal S1 and S2, No murmurs, gallops, rubs Abdomen Soft, No tenderness, No guarding Extremities No cyanosis, No edema, Normal pulses Skin No Rashes, No Breakdown, No Significant Lesions Psych/Mental Status Mental status normal Assessment and Plan Problem List 1. Acute diverticulitis Plan - will advance diet as tolerated - bowel function has returned - will continue with antibiotics 2. Hypertension Plan - patient has been having occasional bouts of hypertension - pt has not been taking medications at home - began metoprolol last night - will add medications as needed
[2016-12-08 18:17] VITALS: BP 166/96
[2016-12-08 22:40] VITALS: BP 136/91
[2016-12-09 03:01] VITALS: BP 122/80
[2016-12-09 06:20] VITALS: BP 130/85
[2016-12-09 10:12] VITALS: BP 126/78
[2016-12-09 14:50] VITALS: BP 140/82
[2016-12-09 18:11] VITALS: BP 163/101
--- NOTE | 2016-12-09 18:12 | Progress Note ---
Subjective General Pt seen and examined, Patient doing very well and is able to tolerate a diet. Patient has no complaints. Constitutional Denies: Fever, Chills, Sweats, Weakness, Malaise, Other. Eyes Denies: Pain, Vision Change, Conjunctival Inflammation, Eyelid Inflammation, Redness, Other. ENT Denies: Ear Pain, Ear Discharge, Nose Pain, Nasal Discharge, Nasal Congestion, Mouth Pain, Mouth Swelling, Throat Pain, Throat Swelling, Other. Respiratory Denies: Cough, Dry, SOB w/exertion, Wheezing, Hemoptysis, Pleuritic Pain, Sputum , Other. Cardiovascular Denies: Chest Pain, Palpitations, Orthopnea, PND, Edema, Light-headedness, Other. Gastrointestinal Nausea, Abdominal Pain. Denies: Vomiting, Diarrhea, Constipation, Melena, Hematochezia, Other. Genitourinary Denies: Dysuria, Frequency, Incontinence, Hematuria, Retention, Other. Musculoskeletal Denies: Neck Pain, Shoulder Pain, Arm Pain, Back Pain, Hand Pain, Leg Pain, Foot Pain, Other. Skin Denies: Rash, Lesions, Jaundice, Bruising, Other. Physical Exam Vital Signs / I&Os Vital Signs Date Time Temp Pulse Resp B/P Pulse O2 O2 Flow FiO2 Ox Delivery Rate 12/09 1450 98.1 79 18 140/82 93 Room Air 12/09 1012 98.1 82 18 126/78 93 Room Air 12/09 0620 99.0 72 18 130/85 91 Room Air 12/09 0301 98.8 71 18 122/80 93 Room Air 12/08 2240 99.0 86 20 136/91 95 Room Air 12/08 1817 99.7 89 20 166/96 94 Room Air I&O 12/08 0800 12/08 1600 12/09 0000 Intake Total 1131 1959 Output Total 450 475 650 Balance 681 -475 1309 General Appearance Alert, Oriented X3, No acute distress HEENT PERRLA, EOMI, Moist mucous membranes Lungs Clear to auscultation, Normal air movement Neck Supple Cardiovascular Regular rate and rhythm, Normal S1 and S2 Abdomen Normal bowel sounds, Soft, - some faint tenderness to palpation Extremities Normal exam Skin No Rashes Neurological Normal exam LAB Results Laboratory Tests 12/09 12/09 0540 1800 Chemistry Plasma Sodium (136 - 145 mmol/L) 140 Plasma Potassium (3.5 - 5.1 mmol/L) 3.4 Plasma Chloride (98 - 107 mmol/L) 105 CO2 (Enzymatic) (21 - 32 mmol/L) 24 BUN (7 - 18 mg/dL) 7 Creatinine (0.6 - 1.3 mg/dL) 0.5 Est GFR ( Amer) (mL/min) >60 Est GFR (Non-Af Amer) (mL/min) >60 Glucose (70 - 110 mg/dL) 103 Plasma Calcium (8.5 - 10.1 mg/dL) 7.6 Total Bilirubin (0.0 - 1.0 mg/dL) 1.1 AST (15 - 37 U/L) 10 ALT (12 - 78 U/L) 12 Alkaline Phosphatase (46 - 116 U/L) 45 Total Protein (6.4 - 8.2 g/dL) 5.2 Albumin (3.3 - 5.0 g/dL) 2.3 Hematology WBC (4.5 - 11.5 K/uL) 10.9 Pending RBC (4.00 - 5.20 M/uL) 3.68 Pending Hgb (12.0 - 16.0 gm/dL) 11.8 Pending Hct (36.0 - 46.0 %) 35.2 Pending MCV (80 - 100 fL) 96 Pending MCH (26 - 34 pg) 32 Pending RDW (11.6 - 14.8 %) 13.5 Pending Neut % (Auto) (50 - 75 %) 83.1 Lymph % (Auto) (25 - 40 %) 7.2 [place] % (Auto) (3 - 14 %) 8.3 Eos % (Auto) (0 - 4 %) 0.9 Baso % (Auto) (0 - 2 %) 0.5 Plt Count, EDTA (150 - 400 K/uL) 212 Pending PUBS MCHC (31 - 37 g/dL) 34 Pending Assessment and Plan Problem List 1. Acute diverticulitis Plan - will advance diet in the am - if patient is able to tolerate it will consider discharge - will conver to oral antibiotics to assess tolerance given vomiting that occured yesterday - daily cbc until discharge 2. Hypertension Plan - well controlled - will continue with isosorbide and metoprolol given good results
[2016-12-09 23:21] VITALS: BP 169/109
[2016-12-10 00:15] VITALS: BP 139/91
[2016-12-10 03:03] VITALS: BP 151/95
[2016-12-10 06:27] VITALS: BP 153/97
[2016-12-10 10:18] VITALS: BP 168/98
[2016-12-10] MEDS ORDERED: AMOXICILLIN/CL875 MG PO (14:03)
[2016-12-10] MEDS ORDERED: LOPRESSOR25 MG PO (14:04)
[2016-12-10] MEDS ORDERED: ISOSORBIDE MONO30 MG PO (14:04)
--- NOTE | 2016-12-10 14:06 | Provider's Discharge Care Plan ---
Problem, Goal, Plan Problem List 1. Acute diverticulitis Instructions: Take meds as directed, - finish course of antibiotics 2. Hypertension Instructions: Take meds as directed, - please follow up with a physician
--- NOTE | 2016-12-10 14:06 | Discharge Summary ---
Discharge Summary Report Admit Date 12/05/16 Discharge Date 12/10/16 Admission Diagnosis Diverticulitis Discharge Diagnosis Diverticulitis Hypertension Brief History The patient is a 56-year-old female with chief complaint of fever and abdominal pain. She has a history of diverticulitis and that was diagnosed at age 36. She has attacks maybe once every 5 years. She has been under a lot of stress this past week as her mother . She has also been stressed out at work and has changed her diet and has had decreased p.o. intake of fluid. This morning she started to have pain in the lower abdomen, symptoms gradually worsened, associated with nausea and vomiting. There is no diarrhea. Her last bowel movement was this afternoon. The patient was seen in the emergency department where a CT showed evidence of sigmoid diverticulitis. Hospital Course Patient is a 56 year old whos presenting with diverticulitis. Patient was seen to have diverticulitis without any abscess formation. Patient was admitted under npo with iv fluids. Patient was treated with iv antibiotics and had good results from that. Patient was treated for the next 3 days, during this time patient was seen to have occasional hypertensive episodes. Patient was placed on metoprolol and isosorbide dinitrate. Patient had good results with these meds. Patient was eventually able to tolerate a diet and had return of bowel function. Patient is otherwise stable. Patient will be discharged home, with the reamining course of antibiotics. Patient will follow up in the community clinic in [place] at her convienience, but was told to see the physician in 1 week if possible. General Appearance Alert, Oriented X3, No acute distress Lungs Clear to auscultation Cardiovascular Normal S1, Normal S2, No murmurs Abdomen Soft, No tenderness, No masses Neurological Normal gait, Normal speech, Normal tone, Sensation intact, Cranial nerves 3-12 NL Discharge Instructions/Meds - take medications as prescribed - advance your diet slowly
== END 2016-12-10 15:45 | disposition home or self-care (01) | DRG 392 ==
LOC: ED SRH 18:52 → TRANS SRH 22:31 → ACUTE2 SRH 23:42
PROVIDERS: ADMIT Emergency Medicine Emergency Medical Services
DX: K57.32 Diverticulitis of large intestine without perforation or abscess without bleeding (principal); E87.1 Hypo-osmolality and hyponatremia; R11.2 Nausea with vomiting, unspecified; I10 Essential (primary) hypertension; E86.0 Dehydration; E87.8 Other disorders of electrolyte and fluid balance, not elsewhere classified
CPT/HCPCS: 85241; 90004; 90047; 90074; 90100; 91643; 92235; 92530; 92720; 95059